=== PATIENT | female | born 1975 | race Caucasian/White ===

== ENCOUNTER 2016-11-29 06:46 | Emergency (ER) | payer OTHER ==
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
[2016-11-29] MEDS ORDERED: ONDANSETRON 4 MG/2 ML VIAL IVPUSH ONE ×2 (06:57→07:15)
[2016-11-29] MEDS ORDERED: SODIUM CHLORIDE 1,000 ML IV STA (06:57)
[2016-11-29 07:06] VITALS: BP 118/85; PULSE 86; TEMP 97.5; BMI 20.3
[2016-11-29 07:34] LABS: MCH 31.9 pg (25.7-33.7); MCHC 34.1 g/dl (32.0-36.0); MEAN CELL VOLUME 93.4 fl (80-96); MEAN PLT VOLUME 8.9 fl (7.5-11.1); PLATELET COUNT 299 K/MM3 (134-434); RDW 12.1 % (11.6-15.6); WHITE BLOOD COUNT 13.6 K/mm3 (4.0-10.8)
[2016-11-29 07:36] LABS: ALBUMIN 4.2 g/dl (3.5-5.0); ALK PHOS 85 U/L (32-92); ANION GAP 8 (8-16); BILIRUBIN,TOTAL 0.5 mg/dl (0.2-1.0); CALCIUM 9.5 mg/dl (8.4-10.2); CO2 26 mmol/L (22-28); CREATININE 0.6 mg/dl (0.6-1.3); GLUCOSE,RANDOM 126 mg/dl (74-106); SGOT/AST 15 U/L (10-42); SGPT/ALT 14 U/L (10-40); TOT PROT 7.3 g/dl (6.4-8.3)
[2016-11-29 08:29] LABS: PLATELET ESTIMATE ADEQUATE (NORMAL)
[2016-11-29] MEDS ORDERED: LORazepam 2 MG/ML SDV VIAL ONE (09:02)
[2016-11-29 09:03] LABS: PH,URINE >= 9.0 (4.5-8); URINE BILIRUBIN Negative (NEGATIVE); URINE BLOOD Negative (NEGATIVE); URINE GLUCOSE (UA) Negative (NEGATIVE); URINE KETONE 1+ (NEGATIVE); URINE LEUK ESTERASE Negative (NEGATIVE); URINE NITRITE Negative (NEGATIVE); URINE PROTEIN 1+ (NEGATIVE); URINE UROBILINOGEN 0.2 (0.2-1.0)
[2016-11-29 09:04] LABS: URINE APPEARANCE CLOUDY; URINE COLOR YELLOW
[2016-11-29 09:05] LABS: URINE RBC 0-3 /hpf (0-3)
[2016-11-29 09:06] LABS: URINE BACTERIA FEW /hpf (NEGATIVE); URINE WBC 0-3 (3-5)
[2016-11-29 12:24] LABS: URINE MARIJUANA THC NEGATIVE ng/ml (CUTOFF=50)
== END 2016-11-29 10:14 | disposition home or self-care (01) ==
LOC: FER 06:46
PROC: 3E033NZ Introduction of Analgesics, Hypnotics, Sedatives into Peripheral Vein, Percutaneous Approach (ICD-10-PCS; principal; 2016-11-29)
PROC: 3E033GC Introduction of Other Therapeutic Substance into Peripheral Vein, Percutaneous Approach (ICD-10-PCS; 2016-11-29)
PROC: 3E0337Z Introduction of Electrolytic and Water Balance Substance into Peripheral Vein, Percutaneous Approach (ICD-10-PCS; 2016-11-29)
DX: K52.9 Noninfective gastroenteritis and colitis, unspecified (principal); G89.29 Other chronic pain; F41.9 Anxiety disorder, unspecified; F17.210 Nicotine dependence, cigarettes, uncomplicated
CPT/HCPCS: 36415; 80053; 80307; 81003; 81015; 83690; 84703; 85025; 96361; 96374; 96375; 96376; 99282-25

== ENCOUNTER 2017-04-29 09:55 | Emergency (ER) | payer OTHER ==
--- NOTE | 2017-04-29 09:57 | PDOC ---
History of Present Illness - General Chief Complaint: Urinary Problem Stated Complaint: URINARY BURNING, URGENCY, FREQUENCY Time Seen by Provider: 04/29/17 09:57 - History of Present Illness Initial Comments: 04/29/17 10:21 The patient is a 41 year old female with a history of chronic back pain, anxiety who presents for evaluation of burning and pain with urination. The patient reports a 2 week history of burning on urination. She states that she believes she has a UTI and was initially trying an over the counter medication which helped with her symptoms, but she continued to experience the burning on urination which prompted her presentation to the ED for evaluation. She otherwise denies fevers, chills, SOB, chest pain, nausea, vomiting, flank pain, abdominal pain, or changes with bowel movements. Past History - Past Medical History Allergies/Adverse Reactions: Allergies Allergy/AdvReac Type Severity Reaction Status Date / Time aspirin Allergy Verified 04/29/17 09:56 ketorolac tromethamine Allergy Verified 04/29/17 09:56 [From Toradol] Home Medications: Ambulatory Orders Oxycodone HCl 10 mg PO TID 01/28/16 Oxymorphone HCl [Opana] 10 mg PO DAILY 01/28/16 Cephalexin Monohydrate [Keflex -] 500 mg PO TID #21 capsule 04/29/17 Anemia: No Asthma: No Cardiac Disorders: No COPD: No CHF: No Diabetes: No Dialysis: No GI Disorders: Yes Disorders: No HTN: No Hypercholesterolemia: No Kidney Stones: No Psychiatric Problems: Yes (ANXIETY) Seizures: No - Reproductive History PID: No - Suicide/Smoking/Psychosocial Hx Smoking Status: Yes Smoking History: Current every day smoker Years of Tobacco Use: 21 Have you smoked in the past 12 months: Yes Number of Cigarettes Smoked Daily: 5 'Breaking Loose' booklet given: 01/28/16 Hx Alcohol Use: No Drug/Substance Use Hx: No Substance Use Type: None Hx Substance Use Treatment: No Review of Systems - Review of Systems Comments:: 04/29/17 10:30 Constitutional: No fevers, chills, fatigue, malaise HEENT: No Rhinorrhea, nasal congestion, visual changes Cardiovascular: No chest pain, syncope, palpitations, lightheadedness Respiratory: No Cough, SOB, Hemoptysis, Gastrointestinal: No Abdominal pain, Nausea, Vomiting, Constipation, Diarrhea, Melena Genitourinary: Dysuria, No Frequency, Urgency, Hesitancy, Hematuria, Flank pain Musculoskeletal: No Myalgia, arthralgia Skin: No rashes, itching, bruising, pallor Neurologic: No Headache, Dizziness, Numbness, Weakness, or Tingling Psychiatric: No Hallucinations. No SI or HI *Physical Exam - Physical Exam Comments: 04/29/17 10:31 General Appearance: Nourished. No Apparent Distress HEENT: No Pharyngeal Erythema, Tonsillar Exudate, Tonsillar Erythema Neck: No Cervical Lymphadenopathy Respiratory/Chest: Lungs Clear, Normal Breath Sounds. No Crackles, Rales, Rhonchi, Wheezing Cardiovascular: Regular Rhythm, Regular Rate. No Murmur, Gallops, Rubs Gastrointestinal/Abdominal: Normal Bowel Sounds, Soft. Mild tenderness to palpation over the suprapubic region. No Guarding, Rebound, Musculoskeletal: No CVA Tenderness Extremity: Normal Capillary Refill Integumentary: Normal Color, Dry, Warm Neurologic: Fully Oriented, Alert, Normal Mood/Affect, Normal Response, Medical Decision Making - Medical Decision Making 04/29/17 10:32 The patient is a 41 year old female with a history of chronic back pain, anxiety who presents for evaluation of burning and pain with urination. Given the patient's history, it is likely the patient's symptoms are due to a UTI. She does not have any clinical findings or concerns for pyelonephrities or kidney stones. We will obtain a UA and urine culture to evaluate further. We will continue to monitor and reassess. 04/29/17 10:59 UA demonstrates positive leuk esterase with many bacteria and wbc consistent with UTI. We will give a dose of keflex here in the ED and discharge on 500mg Keflex TID for 7 days. We discussed return precautions with the patient as well as the plan and the patient voiced understanding and is agreeable. *DC/Admit/Observation/Transfer Diagnosis at time of Disposition: UTI (urinary tract infection) Qualifiers: Urinary tract infection type: site unspecified Hematuria presence: with hematuria Qualified Code(s): N39.0 - Urinary tract infection, site not specified ; R31.9 - Hematuria, unspecified; R31.9 - Hematuria, unspecified - Discharge Dispostion Disposition: HOME Condition at time of disposition: Good Admit: No - Prescriptions Prescriptions: Cephalexin Monohydrate [Keflex -] 500 mg PO TID #21 capsule - Referrals - Patient Instructions Printed Discharge Instructions: DI for Urinary Tract Infection (UTI) Additional Instructions: Please return to the ER if you experience concerning or worsening fevers, pain, flank pain or vomiting. Your urine results showed that you have a UTI. We have sent a prescription for Keflex to your pharmacy which you should take three times a day for 7 days. Please call to schedule a follow up appointment with your primary care provider within 2-3 days to discuss your ER visit. - Post Discharge Activity
[2017-04-29 10:00] VITALS: BP 116/70; PULSE 93; TEMP 98.4; BMI 21.7
[2017-04-29 10:46] LABS: PH,URINE 5.5 (4.5-8); URINE BILIRUBIN 1+ (NEGATIVE); URINE BLOOD 3+ (NEGATIVE); URINE GLUCOSE (UA) Negative (NEGATIVE); URINE KETONE Trace (NEGATIVE); URINE LEUK ESTERASE 2+ (NEGATIVE); URINE NITRITE Negative (NEGATIVE); URINE PROTEIN 3+ (NEGATIVE); URINE UROBILINOGEN 0.2 (0.2-1.0)
[2017-04-29 10:47] LABS: URINE APPEARANCE CLOUDY; URINE COLOR AMBER
[2017-04-29 10:57] LABS: EPI CELLS MODERATE /HPF; URINE BACTERIA MANY /hpf (NEGATIVE); URINE RBC 20-30 /hpf (0-3); URINE WBC >100 (0-5)
[2017-04-29] MEDS ORDERED: CEPHALEXIN MONOHYDRATE 500 MG CAPSULE (UD) PO ONE (10:58)
--- NOTE | 2017-04-29 10:59 | PDOC ---
Attending Attestation - Resident Resident Name: Andrew Dasel - ED Attending Attestation I have performed the following: I have examined & evaluated the patient, The case was reviewed & discussed with the resident, I agree w/resident's findings & plan - HPI HPI: 04/29/17 10:57 Patient is 41 years old with history of prior UTI. She presents with more than a week of dysuria and frequency. There is no back pain or vomiting. There is no fever. There is no vaginal discharge. Her last menstrual period was one week ago and was normal. - Physicial Exam PE: 04/29/17 10:58 Patient is awake, alert, and fully oriented. She appears well. Back is without CVA tenderness. Abdomen is soft with trace of suprapubic tenderness. There is no guarding or rebound tenderness. - Medical Decision Making 04/29/17 10:58 Urinalysis shows positive leuk esterase, positive protein, and positive blood. The microscopic is pending, however, these findings are suggestive of cystitis. There are no findings suggestive of pyelonephritis or kidney stone. Plan: Discharge on Keflex. Call back procedures for urine culture.
[2017-04-29] MEDS ORDERED: CEPHALEXIN MONOHYDRATE 500 MG CAPSULE (UD) ONE (11:00)
== END 2017-04-29 11:10 | disposition home or self-care (01) ==
LOC: FER 09:55
DX: N39.0 Urinary tract infection, site not specified (principal); R31.9 Hematuria, unspecified; G89.29 Other chronic pain; F41.9 Anxiety disorder, unspecified; F17.210 Nicotine dependence, cigarettes, uncomplicated
CPT/HCPCS: 81003; 81015; 84703; 87086; 87186; 99283-25

== ENCOUNTER 2017-09-21 12:25 | Emergency (ER) | payer OTHER ==
[2017-09-21] MEDS ORDERED: SODIUM CHLORIDE 1,000 ML IV STA ×2 (12:41→14:50)
[2017-09-21] MEDS ORDERED: morphine CARPU-JECT 4 MG/1 ML DISP.SYRIN IVPUSH ONE ×2 (12:41→14:50)
--- NOTE | 2017-09-21 12:47 | PDOC ---
History of Present Illness - General Chief Complaint: Pain Stated Complaint: RT LOWER QUAD PAIN Time Seen by Provider: 09/21/17 12:28 History Source: Patient Exam Limitations: No Limitations - History of Present Illness Initial Comments: 42 yo F history chronic low back pain (on oxycodone) and IBS presents with abd pain for the past 3 days, progressively worsening. She notes a bloated feeling in her lower abdomen. The pain localizes to the RLQ, does not radiate. No associated f/c, N/V/D, dysuria, frequency. She has been more constipated than usual for the past few days. Past History - Past Medical History Allergies/Adverse Reactions: Allergies Allergy/AdvReac Type Severity Reaction Status Date / Time aspirin AdvReac Verified 09/21/17 12:27 Home Medications: Ambulatory Orders Oxycodone HCl 10 mg PO TID 01/28/16 Aripiprazole [Abilify] 30 mg PO DAILY 09/08/17 Clonazepam [Klonopin] 2 mg PO BID PRN 09/08/17 Diphenhydramine HCl [Benadryl -] 25 mg PO HS 09/08/17 Mirtazapine [Remeron -] 15 mg PO HS 09/08/17 Methadone [Dolophine -] 20 mg PO DAILY 09/21/17 Anemia: No Asthma: No Cardiac Disorders: No COPD: No CHF: No Diabetes: No Dialysis: No GI Disorders: Yes Disorders: No HTN: No Hypercholesterolemia: No Kidney Stones: No Psychiatric Problems: Yes (ANXIETY) Seizures: No - Reproductive History PID: No - Suicide/Smoking/Psychosocial Hx Smoking Status: Yes Smoking History: Current some day smoker Years of Tobacco Use: 21 Have you smoked in the past 12 months: Yes Number of Cigarettes Smoked Daily: 6 'Breaking Loose' booklet given: 04/29/17 Hx Alcohol Use: No Drug/Substance Use Hx: Yes Substance Use Type: Alcohol, Cocaine Hx Substance Use Treatment: No Review of Systems - Review of Systems Able to Perform ROS?: Yes Comments:: GENERAL/CONSTITUTIONAL: No fever or chills. No weakness. HEAD, EYES, EARS, NOSE AND THROAT: No change in vision. No ear pain or discharge. No sore throat. CARDIOVASCULAR: No chest pain or shortness of breath. RESPIRATORY: No cough, wheezing, or hemoptysis. GASTROINTESTINAL: No nausea, vomiting, diarrhea. +Constipation. GENITOURINARY: No dysuria, frequency, or change in urination. MUSCULOSKELETAL: No joint or muscle swelling or pain. No neck or back pain. SKIN: No rash NEUROLOGIC: No headache, vertigo, loss of consciousness, or change in strength/ sensation. ENDOCRINE: No increased thirst. No abnormal weight change. HEMATOLOGIC/LYMPHATIC: No anemia, easy bleeding, or history of blood clots. ALLERGIC/IMMUNOLOGIC: No hives or skin allergy. *Physical Exam - Physical Exam Comments: GENERAL: Awake, alert, and fully oriented. Appears uncomfortable. Nontoxic. HEAD: No signs of trauma EYES: PERRLA, EOMI, sclera anicteric, conjunctiva clear ENT: Auricles normal inspection, hearing grossly normal, nares patent, oropharynx clear without exudates. Dry mucosa NECK: Normal ROM, supple, no lymphadenopathy, JVD, or masses LUNGS: Breath sounds equal, clear to auscultation bilaterally. No wheezes, and no crackles HEART: Regular rate and rhythm, normal S1 and S2, no murmurs, rubs or gallops ABDOMEN: Soft, +RLQ tenderness with guarding, hypoactive bowel sounds. No rebound. No masses EXTREMITIES: Normal range of motion, no edema. No clubbing or cyanosis. No cords, erythema, or tenderness NEUROLOGICAL: Cranial nerves II through XII grossly intact. Normal speech, normal gait SKIN: Warm, Dry, normal turgor, no rashes or lesions noted. ED Treatment Course - LABORATORY CBC & Chemistry Diagram: 09/21/17 13:25 09/21/17 13:25 Medical Decision Making - Medical Decision Making 09/21/17 15:57 CT read. 09/21/17 16:10 CT findings discussed with patient. Small kidney stone that is unlikely related to her pain, as it is still intrarenal. She has fecal retention, likely related to chronic opioid use for low back pain as well as history of IBS with constipation. Will give relistor, as this may alleviate her symptoms. No signs of appendicitis. She is currently on her menses, so ovarian torsion/cyst unlikely. *DC/Admit/Observation/Transfer Diagnosis at time of Disposition: Abdominal pain Qualifiers: Abdominal location: right lower quadrant Qualified Code(s): R10.31 - Right lower quadrant pain Constipation Qualifiers: Constipation type: unspecified constipation type Qualified Code(s): K59.00 - Constipation, unspecified - Discharge Dispostion Disposition: HOME Condition at time of disposition: Stable Decision to Admit order: No - Referrals - Patient Instructions Printed Discharge Instructions: DI for Abdominal Pain-Adult - Post Discharge Activity
[2017-09-21 12:53] VITALS: BP 114/73; PULSE 87; TEMP 97.4; BMI 22.4
[2017-09-21 13:05] LABS: HCG,QUALITATIVE URINE Negative
[2017-09-21 13:51] LABS: BASO % 0.3 % (0-2.0); EOS % 1.4 % (0-4.5); HEMOGLOBIN 12.8 GM/dl (10.7-15.3); LYMPH % 18.1 % (8-40); MCHC 34.6 g/dl (32.0-36.0); MEAN CELL VOLUME 92.4 fl (80-96); MONO % 4.8 % (3.8-10.2); NEUT % 75.4 % (42.8-82.8); PLATELET COUNT 188 K/MM3 (134-434); RDW 13.1 % (11.6-15.6); WHITE BLOOD COUNT 11.9 K/mm3 (4.0-10.8)
[2017-09-21] MEDS ORDERED: morphine CARPU-JECT 10 MG/1 ML DISP.SYRIN ONE (13:53)
[2017-09-21 13:58] LABS: ALBUMIN 3.6 g/dl (3.5-5.0); ALK PHOS 80 U/L (32-92); ANION GAP 6 (8-16); BILIRUBIN,TOTAL 0.3 mg/dl (0.2-1.0); BLOOD UREA NITROGEN 9 mg/dl (7-18); CALCIUM 8.5 mg/dl (8.4-10.2); CHLORIDE 103 mmol/L (98-107); CO2 26 mmol/L (22-28); CREATININE 0.6 mg/dl (0.6-1.3); GLUCOSE,RANDOM 106 mg/dl (74-106); SGOT/AST 24 U/L (10-42); SGPT/ALT 21 U/L (10-40); SODIUM 135 mmol/L (136-145); TOT PROT 6.5 g/dl (6.4-8.3)
[2017-09-21 14:06] LABS: URINE APPEARANCE Clear; URINE BILIRUBIN Negative (NEGATIVE); URINE COLOR Amber; URINE GLUCOSE (UA) Negative (NEGATIVE); URINE KETONE Trace (NEGATIVE); URINE LEUK ESTERASE Negative (NEGATIVE); URINE NITRITE Negative (NEGATIVE); URINE PROTEIN Negative (NEGATIVE); URINE UROBILINOGEN 0.2 (0.2-1.0)
[2017-09-21 14:38] LABS: LIPASE 58 U/L (73-393)
[2017-09-21 15:01] LABS: COCAINE, UR NEGATIVE ng/ml (CUTOFF=300); METHADONE, UR POSITIVE ng/ml (CUTOFF=300); OPIATES, URI POSITIVE ng/ml (CUTOFF=300); PHENCYCLIDINE,URINE NEGATIVE ng/ml (CUTOFF=25); URINE AMPHETAMINES NEGATIVE ng/ml (CUTOFF=500); URINE BARBITURATES NEGATIVE ng/ml (CUTOFF=200); URINE BENZODIAZEPINES POSITIVE ng/ml (CUTOFF=200)
[2017-09-21] MEDS ORDERED: Methylnaltrexone Bromide 12 MG/0.6 ML KIT SQ ONE (16:09)
== END 2017-09-21 17:53 | disposition home or self-care (01) ==
LOC: FER 12:25
PROC: 3E023GC Introduction of Other Therapeutic Substance into Muscle, Percutaneous Approach (ICD-10-PCS; principal; 2017-09-21)
PROC: 3E033NZ Introduction of Analgesics, Hypnotics, Sedatives into Peripheral Vein, Percutaneous Approach (ICD-10-PCS; 2017-09-21)
PROC: 3E0337Z Introduction of Electrolytic and Water Balance Substance into Peripheral Vein, Percutaneous Approach (ICD-10-PCS; 2017-09-21)
DX: K59.00 Constipation, unspecified (principal); F41.9 Anxiety disorder, unspecified; F17.210 Nicotine dependence, cigarettes, uncomplicated
CPT/HCPCS: 36415; 74177-TC; 80053; 80307; 81003; 83690; 84703; 85025; 86850; 86900; 86901; 99284-25; J7030

== ENCOUNTER 2023-09-08 16:22 | Emergency (ER) | payer OTHER ==
[2023-09-08 16:43] VITALS: BP 138/88; PULSE 83; RESP 20; TEMP 98.6; BMI 25.7
[2023-09-08] MEDS ORDERED: CEPHALEXIN MONOHYDRATE 500 MG CAPSULE (UD) ONE (17:09)
[2023-09-08] MEDS: CEPHALEXIN MONOHYDRATE 500 MG CAPSULE (UD) PO ONE (17:30)
== END 2023-09-08 17:34 | disposition home or self-care (01) ==
LOC: FER 16:22
DX: S91.001A Unspecified open wound, right ankle, initial encounter (principal); L03.115 Cellulitis of right lower limb; W01.0XXA Fall on same level from slipping, tripping and stumbling without subsequent striking against object, initial encounter; Y92.093 Driveway of other non-institutional residence as the place of occurrence of the external cause
CPT/HCPCS: 99283-25